=== PATIENT | female | born 1990 | race Caucasian/White ===

== ENCOUNTER 2022-02-01 16:41 | Emergency (ER) | payer OTHER, SELFPAY ==
[2022-02-01 16:55] VITALS: BP 142/76; PULSE 104; RESP 18; TEMP 36.9; O2SAT 100
--- NOTE | 2022-02-01 17:15 | PC.NURSE ---
heart tones 154bpm, found in upper RLQ.
--- NOTE | 2022-02-01 17:34 | ED.PREGNANCY ---
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 Patient states that she had an ultrasound on , and was told baby is smaller than it was 2 months ago. Patient states that she did not ask her INDUSTRY SEGMENT SPECIALIST any questions regarding the results. Patient states that she can feel movement, and denies any vaginal bleeding. Patient is in no distress and has no other complaints at this time Related Data Allergies Allergy/AdvReac Type Severity Reaction Status Date / Time No Known Allergies Allergy Unverified 03/30/16 05:12 Review of Systems Review of Systems: CONSTITUTIONAL: Denies fever, chills, or sweats. EYES: Denies visual changes, redness, or discharge. ENT: Denies rhinorrhea, congestion, sore throat, or otalgia. CARDIOVASCULAR: Denies chest pain, palpitations, or edema. RESPIRATORY: Denies cough or dyspnea. GASTROINTESTINAL: Denies abdominal pain, nausea, vomiting, or diarrhea. GENITOURINARY: Denies dysuria or hematuria. SKIN: Denies rash or itching. MUSCULOSKELETAL: Denies back pain, joint pain, or myalgia. NEUROLOGIC: Denies headache, numbness, dizziness, or weakness. PSYCHIATRIC: Denies anxiety or depression. [facility] Family History Family History Mother Cerebrovascular accident Social History Social History Smoking status: Former smoker Smoking end date: 06/15/17 Alcohol intake: current Exam Narrative: GENERAL: Well-appearing, well-nourished, no physical limitations, and in no acute distress. HEAD: Normocephalic, atraumatic. EYES: Conjunctivae normal, PERRLA and EOMI. CHEST: Clear to auscultation. No respiratory distress. No wheezes rales or rhonchi. No tenderness. HEART: Regular rate and rhythm. No murmur heard. Normal peripheral pulses. ABDOMEN: Soft, nontender, nondistended, normal active bowel sounds. EXTREMITIES: Normal range of motion. No edema. No clubbing or cyanosis SKIN: Warm, dry, no rash. No noted wounds NEURO: No focal deficits. Alert and oriented x3. MAEW. CN's II-XI intact bilaterally, normal gait PSYCH: Cooperative. Normal mood and affect. Course Vital Signs Vital signs: Vital Signs Temperature 36.9 C 02/01/22 16:55 Pulse Rate 104 H 02/01/22 16:55 Respiratory Rate 18 02/01/22 16:55 Blood Pressure 142/76 H 02/01/22 16:55 Pulse Oximetry 100 02/01/22 16:55 Oxygen Delivery Room Air 02/01/22 16:55 Temperature 36.9 C 02/01/22 16:55 Pulse Rate 104 H 02/01/22 16:55 Respiratory Rate 18 02/01/22 16:55 Blood Pressure 142/76 H 02/01/22 16:55 Pulse Oximetry 100 02/01/22 16:55 Oxygen Delivery Room Air 02/01/22 16:55 Discharge Plan Discharge Clinical Impression: Currently Patient Disposition: Home, Self-Care Condition: Stable Instructions: Antibiotic Form Additional Instructions: Follow-up with your INDUSTRY SEGMENT SPECIALIST on Thursday to clarify the ultrasound results. If your INDUSTRY SEGMENT SPECIALIST feels that there is a concern with your baby size, she will order another ultrasound for verification. Follow-up/Referrals: PHYSICIAN NOT ON STAFF,NONSTAFF [Primary Care Provider] - Time of Disposition: 17:38
== END 2022-02-01 18:13 | disposition home or self-care (01) ==
PROVIDERS: Emergency Provider Nurse Practitioner Family
DX: Z34.93 Encounter for supervision of normal pregnancy, unspecified, third trimester (principal); Z3A.30 30 weeks gestation of pregnancy; Z87.891 Personal history of nicotine dependence
CPT/HCPCS: 99282